=== PATIENT | female | born 2000 | race Caucasian/White ===

== ENCOUNTER 2023-12-21 09:36 | Emergency (ER) | payer OTHER, SELFPAY ==
[2023-12-21 09:42] VITALS: BP 132/96
[2023-12-21 10:25] VITALS: BMI 45.9
--- NOTE | 2023-12-21 10:39 | ED.GENMED ---
History of Present Illness
General
Chief Complaint: Vaginal Bleeding
Source: patient
Exam Limitations: none
Time Seen by Provider: 12/21/23 10:38
Nursing documentation reviewed up to this point in time: agreed with
History of Present Illness
History of Present Illness:
23 yr old female with past medical history of anxiety ADHD suicidal attempt in the past presents to the ER for vaginal bleeding. Patient reports she has been bleeding vaginally since October 06. Prior to that she had not had a regular period for
months. She has had some clots recently last night while at work passed out. 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 Previously she she Saw DR Faiza gutiérrez.
She does complain of cramping now. She has 1 history of 1 elective . She is not on control.
Past History
Past History
ED Past Medical History: Asthma, Seizures (Pseudoseizures diagnosed in [place]...new-onset June 2019, while residing in [place]), Psychiatric (Bipolar disorder, borderline personality disorder, intentional overdose) and Other (IBS, Overdose)
ED Past Surgical History: Tonsilectomy
Patient has exhibited threatening behavior?: No
Social History
Tobacco: Smoker
Alcohol: Occasional
Drug: None
Personal: Single
Living: alone (Lives with roommates)
Family History
Family History: Other (Uncontributory)
Review of Systems
Review of Systems
Allergies reviewed?: Yes
All Other Systems: ROS reviewed and negative except as documented in HPI and ROS
Constitutional: Reports no symptoms; Denies fever, fatigue or chills
Respiratory: Reports no symptoms
Cardiac: Reports no symptoms
ABD/GI: Reports abdominal pain (lower abd cramping )
: Reports other (Vaginal bleeding/abd cramping )
Musculoskeletal: Reports no symptoms
Skin: Reports no symptoms
Neurological: Reports no symptoms
Psychiatric: Reports no symptoms
Phy Exam
General Physical Exam
General Presentation: no apparent distress
General age: appears stated age
General Skin: warm and dry
General Habitus: obese
Course
Orders/Labs/Results
Orders:
Orders
12/21/23 10:50
Electrocardiogram (*1) Stat
Reason for Study: Other
Other Reason for Exam: chest pain
Cardiac Monitoring- Treatment ONCE
EKG- Treatment ONCE
12/21/23 11:13
Test Result ONCE
12/21/23 11:15
Type+Screen Urgent
Complete Blood Count/With Diff Urgent
Comprehensive Metabolic Panel Urgent
HCG, Serum Qualitative Screen Urgent
Urinalysis Reflex To Culture Urgent
Date Specimen was Collected: 12/21/23
Time Specimen was Collected: 11:12
Urine Microscopic Reflex Cult Urgent
Abnormal Lab Results
12/21/23
11:15
Creatinine 0.5 L mg/dL
(0.6-1.0)
Ur Occult Blood Reflex 1+ A
(Negative)
Urine RBC 3-6 A /HPF
(0-2)
Urine Bacteria (Reflex) Few A
(Negative)
12/21/23 11:15
12/21/23 11:15
Vital Signs
Initial and Last Documented VS:
Initial Vital Signs
Temp Pulse Resp BP Pulse Ox
98.4 F 97 18 132/96 98
12/21/23 09:42 12/21/23 09:42 12/21/23 09:42 12/21/23 09:42 12/21/23 09:42
Last Documented Vital Signs
Temp Pulse Resp BP Pulse Ox
98.4 F 78 21 120/77 99
12/21/23 09:42 12/21/23 12:00 12/21/23 11:15 12/21/23 12:00 12/21/23 12:00
MDM/Problems Addressed
Differential Diagnosis Includes:
Not limited to dysfunctional uterine bleeding, anemia
MDM/Problems Addressed:
Symptoms are consistent with dysfunctional uterine bleeding. Patient presents awake alert no acute distress stable hemoglobin of 14.4 nontachycardic.
Patient had complains of mild abdominal cramping in no acute distress here in the ER abdomen soft nontender. patient requested to eat something here in the ER.
she is eating here and looks well. hCG is negative. 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
*Pulse Oximetry
Patient hypoxic: no
*Critical Care Note
Total Time (30-74mins, 75-104mins- exclusive of procedures): Not Applicable
ED Attending Note
-
Portions of this chart may have been created with voice recognition software.� Occasional wrong word or��sound alike� substitutions may have occurred due to the inherent limitations of voice recognition software.
Discharge Plan
Departure
Patient Disposition: Home (Routine Discharge)
Date of Disposition: 12/21/23
Time of Disposition: 12:21
Patient with high blood pressure during this ER visit?: Yes
Condition: Fair
Covid-19: Not Applicable
Discharge Problem:
dysfunctional vaginal bleeding
Instructions: Bleeding Between Periods
Prescriptions:
No Action
meloxicam 15 mg tablet
15 mg PO DAILY
topiramate 50 mg tablet
75 mg PO BID
Rx Instructions:
Last filled 07/02/22 #90 x30 days supply
Referrals:
NONE,* [Family Provider] -
Keyla Arteaga MD [Active] -
Activity Restrictions/Additional Instructions:
As discussed your labs are normal You need to follow-up with gynecology. Please call the office today for an appointment as soon as possible return if any worsening of symptoms
Interventions
Interventions:
*Risk Screen - Suicide Last Done: 12/21/23 09:42
*General Assessment Last Done: 12/21/23 09:42
*Neglect/Abuse Screening Last Done: 12/21/23 09:42
ED- Fall Risk Assessment Last Done: 12/21/23 10:25
*ED COVID-19 Vaccine History Last Done: 12/21/23 10:25
ED-Female Genitourinary Assessment Last Done: 12/21/23 10:25
Discharge Date and Time
Print Language: TAIWANESE
[2023-12-21 11:17] VITALS: BP 115/86
[2023-12-21 11:28] LABS: % Basophils 0.5 % (0-2); % Eosinophils 1.1 % (0-6); % Immature Granulocytes 0.4 % (0-0.5); % Lymphocytes 31.3 % (20.5-51.1); % Monocytes 5.4 % (1.7-9.3); % Neutrophils 61.3 % (42.2-75.2); Absolute Basophils 0.1 10^3/uL (0-0.2); Absolute Eosinophils 0.1 10^3/uL (0-0.7); Absolute Lymphocytes 3.1 10^3/uL (1.2-3.4); Absolute Monocytes 0.5 10^3/uL (0.1-0.6); Absolute Neutrophils 6.1 10^3/uL (1.4-6.5); Hematocrit 41.4 % (37.0-47.0); Hemoglobin 14.4 g/dL (12.0-16.0); Mean Corp Hgb Conc. 34.8 g/dL (33.0-37.0); Mean Corpuscular Hgb 28.7 pg (27.0-31.0); Mean Corpuscular Volume 82.6 fL (81.0-99.0); Nucleated Red Blood Cells % 0 %; Platelet Count 276 10^3/uL (130-400); Red Blood Cell Count 5.01 10^6/uL (4.20-5.40); Red Cell Dist. Width 12.7 % (11.5-14.5); White Blood Cell Count 9.9 10^3/uL (4.8-10.8)
[2023-12-21 11:32] LABS: Urine Albumin Negative (Neg - Trace); Urine Bilirubin Negative (Negative); Urine Character Clear (Clear); Urine Color Yellow; Urine Glucose Negative (Negative); Urine Ketone Negative (Negative); Urine Leukocyte Negative (Negative); Urine Nitrite Negative (Negative); Urine Occult Blood 1+ (Negative); Urine Specific Gravity 1.015 (<1.030); Urine Urobilinogen Negative (Neg - 1+); Urine pH 6.5 (5.0-9.0)
[2023-12-21 11:38] LABS: HCG, Serum Qualitative Screen Negative
[2023-12-21 11:41] LABS: ALT (SGPT) 25 U/L (0-35); AST (SGOT) 19 U/L (14-36); Albumin 4.4 g/dl (3.5-5.0); Alkaline Phosphatase 95 U/L (38-126); Blood Urea Nitrogen 9 mg/dl (7-17); Calcium 9.2 mg/dl (8.4-10.2); Carbon Dioxide 24 mmol/L (22-30); Chloride 105 mmol/L (98-107); Estimated Creatinine Clearance > 125 ml/min; Glucose 96 mg/dl (70-99); Potassium 4.2 mmol/L (3.5-5.1); Sodium 137 mmol/L (135-145); Total Bilirubin 0.4 mg/dl (0.2-1.3); eGFR > 60.00
[2023-12-21 11:50] LABS: Urine Mucus Few
[2023-12-21 11:51] LABS: Urine Bacteria Few (Negative); Urine Squamous Cell 16-20 /LPF (Few); Urine White Cell 0-2 /HPF (0-5)
[2023-12-21 12:00] VITALS: BP 120/77
== END 2023-12-21 12:33 | disposition home or self-care (01) ==
LOC: EMR 09:36
PROVIDERS: Nurse Practitioner; EMERGENCY PHYSICIAN Emergency Medicine
DX: N93.8 Other specified abnormal uterine and vaginal bleeding (principal); F41.9 Anxiety disorder, unspecified; F90.9 Attention-deficit hyperactivity disorder, unspecified type; R45.851 Suicidal ideations; J45.909 Unspecified asthma, uncomplicated; F31.9 Bipolar disorder, unspecified; F60.3 Borderline personality disorder; K58.9 Irritable bowel syndrome, unspecified; F17.200 Nicotine dependence, unspecified, uncomplicated; Z91.51 Personal history of suicidal behavior
CPT/HCPCS: 99283; 80053; 81003; 81015; 84703; 85025; 86850; 86900; 86901; 93005

== ENCOUNTER 2024-07-22 07:07 | Emergency (ER) | payer OTHER, SELFPAY ==
[2024-07-22 07:11] VITALS: BP 131/84
--- NOTE | 2024-07-22 08:37 | ED.GENMED ---
History of Present Illness
General
Chief Complaint: Allergic Reaction
Source: patient
Exam Limitations: none
Time Seen by Provider: 07/22/24 08:37
Nursing documentation reviewed up to this point in time: agreed with
History of Present Illness
History of Present Illness:
24-year-old female past medical history of asthma presenting to the emergency department with an itchy rash that started overnight last night. Took Benadryl at home prior to arrival with some mild improvement. Had some trouble swallowing and
breathing prior to arrival symptoms have otherwise improved during her stay in the ER so far. Denies any chest pain shortness of breath she is unsure of any specific exposure.
Past History
Past History
ED Past Medical History: Asthma, Seizures (Pseudoseizures diagnosed in [place]...new-onset June 2019, while residing in [place]), Psychiatric (Bipolar disorder, borderline personality disorder, intentional overdose) and Other (IBS, Overdose)
ED Past Surgical History: Tonsilectomy
Patient has exhibited threatening behavior?: No
Social History
Tobacco: Smoker
Alcohol: Occasional
Drug: None
Personal: Single
Living: alone (Lives with roommates)
Family History
Family History: Other (Uncontributory)
Review of Systems
Review of Systems
Allergies reviewed?: Yes
All Other Systems: ROS reviewed and negative except as documented in HPI and ROS
Phy Exam
Physical Exam
Physical Exam:
GENERAL: Alert , in no apparent distress
EYE: pupils equal and reactive
NECK: Supple, no significant adenopathy.
ENT: o/p clr, mmm.
CARDIAC: Regular rate and rhythm .
LUNGS: Clear breath sounds bilaterally, no acute respiratory distress, no wheezes/rales/rhonchi
ABDOMEN: Soft, without focal tenderness, no r/g, no cvat
NEUROLOGICAL: Alert and oriented, no focal neuro deficits
SKIN: Scattered raised wheals to the upper chest, warm and dry, skin intact.
MUSCULOSKELETAL: No edema, well perfused.
PSYCH: Normal and appropriate interaction.
Course
Orders/Labs/Results
Orders:
Orders
07/22/24 08:34
Dexamethasone Pf [Decadron] 10 mg .ROUTE .STK-MED ONE
07/22/24 08:40
Dexamethasone [Decadron] 10 mg PO NOW STA
Vital Signs
Initial and Last Documented VS:
Initial Vital Signs
Temp Pulse Resp BP Pulse Ox
98.6 F 89 18 131/84 98
07/22/24 07:11 07/22/24 07:11 07/22/24 07:11 07/22/24 07:11 07/22/24 07:11
Last Documented Vital Signs
Temp Pulse Resp BP Pulse Ox
98.6 F 89 18 131/84 98
07/22/24 07:11 07/22/24 07:11 07/22/24 07:11 07/22/24 07:11 07/22/24 07:11
MDM/Problems Addressed
MDM/Problems Addressed:
24-year-old female presenting to the emergency department with hives scattered throughout the upper chest. Otherwise clear oropharynx normal posterior pharynx, clear lungs no signs of anaphylaxis at this point. Patient likely with allergic
reaction that is isolated to the skin at this point plan for symptomatic treatment otherwise stable for outpatient follow-up. Return precautions given.
*Critical Care Note
Total Time (30-74mins, 75-104mins- exclusive of procedures): Not Applicable
ED Attending Note
-
Portions of this chart may have been created with voice recognition software.� Occasional wrong word or��sound alike� substitutions may have occurred due to the inherent limitations of voice recognition software.
Discharge Plan
Departure
Patient Disposition: Home (Routine Discharge)
Date of Disposition: 07/22/24
Time of Disposition: 08:37
Patient with high blood pressure during this ER visit?: No
Condition: Good
Covid-19: Not Applicable
Discharge Problem:
Allergic reaction
Instructions: Hives (DC)
Prescriptions:
New
prednisone 20 mg tablet
40 mg PO DAILY 4 Days Qty: 8 0RF
Zyrtec 10 mg capsule
10 mg PO DAILY 5 Days Qty: 5 0RF
famotidine 40 mg tablet
40 mg PO HS 5 Days Qty: 5 0RF
epinephrine [EpiPen 2-Mauricio] 0.3 mg/0.3 mL auto-injector
0.3 mg IM Q5-15M PRN (Reason: anaphylaxis) Qty: 2 0RF
No Action
meloxicam 15 mg tablet
15 mg PO DAILY
topiramate 50 mg tablet
75 mg PO BID
Rx Instructions:
Last filled 07/02/22 #90 x30 days supply
Referrals:
UNKNOWN,NO INTERVIEW [Family Provider] -
Activity Restrictions/Additional Instructions:
You can to the emergency department today with concerns of a rash that appears to be consistent with allergic reaction. Please take the prescribed medications and follow-up very closely with the primary care the next few days for reassessment to
ensure this is improving. Return for any worsening, new or concerning symptoms.
Interventions
Interventions:
*Risk Screen - Suicide Last Done: 07/22/24 07:11
*Neglect/Abuse Screening Last Done: 07/22/24 08:40
ED- Fall Risk Assessment Last Done: 07/22/24 08:40
*ED COVID-19 Vaccine History Last Done: 07/22/24 08:40
*Nursing Disposition Last Done: 07/22/24 08:46
ED- Cardiac Assessment Last Done: 07/22/24 08:40
ED- Pulmonary Assessment Last Done: 07/22/24 08:40
ED-Skin Assessment Last Done: 07/22/24 08:40
Discharge Date and Time
Discharge Date/Time: 07/22/24 08:47
Print Language: UZBEK
[2024-07-22] MEDS: DECADRON 10 MG PO (08:42)
== END 2024-07-22 08:47 | disposition home or self-care (01) ==
LOC: EMR 07:07
PROVIDERS: EMERGENCY PHYSICIAN Emergency Medicine
DX: T78.40XA Allergy, unspecified, initial encounter (principal); X58.XXXA Exposure to other specified factors, initial encounter; L50.9 Urticaria, unspecified; J45.909 Unspecified asthma, uncomplicated; F17.200 Nicotine dependence, unspecified, uncomplicated
CPT/HCPCS: 99283

== ENCOUNTER 2024-09-27 10:04 | Emergency (ER) | payer OTHER, SELFPAY ==
[2024-09-27 10:13] VITALS: BP 129/83
--- NOTE | 2024-09-27 11:02 | ED.GENMED ---
History of Present Illness
General
Chief Complaint: Breathing Problem
Source: patient
Exam Limitations: none
Time Seen by Provider: 09/27/24 10:51
History of Present Illness
History of Present Illness:
24-year-old female with history of asthma presents via EMS from place of employment after having an asthma attack. She did not have her inhaler on her and she was having trouble breathing EMS was called. She received an albuterol inhaler on the
way here and is feeling much better. Currently has no complaints of shortness of breath chest tightness wheeze cough or fever. No other complaints at this time
Past History
Past History
ED Past Medical History: Asthma, Seizures (Pseudoseizures diagnosed in [place]...new-onset June 2019, while residing in [place]), Psychiatric (Bipolar disorder, borderline personality disorder, intentional overdose) and Other (IBS, Overdose)
ED Past Surgical History: Tonsilectomy
Patient has exhibited threatening behavior?: No
Social History
Tobacco: Smoker
Alcohol: Occasional
Drug: None
Personal: Single
Living: alone (Lives with roommates)
Family History
Family History: Other (Uncontributory)
Phy Exam
Physical Exam
Physical Exam:
General: Well-appearing female no acute respiratory distress
HEENT: Normocephalic atraumatic
Heart: Regular rate and rhythm
Lungs: Clear no wheeze no respiratory distress no increased accessory muscle use
Extremities: No cyanosis
Course
Vital Signs
Initial and Last Documented VS:
Initial Vital Signs
Temp Pulse Resp BP Pulse Ox
98 F 98 16 129/83 98
09/27/24 10:13 09/27/24 10:13 09/27/24 10:13 09/27/24 10:13 09/27/24 10:13
Last Documented Vital Signs
Temp Pulse Resp BP Pulse Ox
98 F 98 16 129/83 98
09/27/24 10:13 09/27/24 10:13 09/27/24 10:13 09/27/24 10:13 09/27/24 10:13
MDM/Problems Addressed
Differential Diagnosis Includes:
Patient may have had an asthma attack while at work but her lungs are clear currently after an albuterol inhaler. She is in no respiratory distress. She has an inhaler at home which she will use. No indication for imaging. Discussed steroids but
held off for now. Recommend continued use of inhaler if needed. Stable for discharge
*Critical Care Note
Total Time (30-74mins, 75-104mins- exclusive of procedures): Not Applicable
ED Attending Note
-
Portions of this chart may have been created with voice recognition software.� Occasional wrong word or��sound alike� substitutions may have occurred due to the inherent limitations of voice recognition software.
Discharge Plan
Departure
Patient Disposition: Home (Routine Discharge)
Date of Disposition: 09/27/24
Time of Disposition: 11:03
Patient with high blood pressure during this ER visit?: No
Discharge Problem:
Asthma exacerbation
Instructions: Asthma, Adult (DC)
Prescriptions:
No Action
meloxicam 15 mg tablet
15 mg PO DAILY
topiramate 50 mg tablet
75 mg PO BID
Rx Instructions:
Last filled 07/02/22 #90 x30 days supply
prednisone 20 mg tablet
40 mg PO DAILY 4 Days Qty: 8 0RF
Zyrtec 10 mg capsule
10 mg PO DAILY 5 Days Qty: 5 0RF
famotidine 40 mg tablet
40 mg PO HS 5 Days Qty: 5 0RF
epinephrine [EpiPen 2-Mauricio] 0.3 mg/0.3 mL auto-injector
0.3 mg IM Q5-15M PRN (Reason: anaphylaxis) Qty: 2 0RF
Activity Restrictions/Additional Instructions:
Use your inhaler if needed peer return if worse otherwise follow-up with your doctor
Interventions
Interventions:
*Risk Screen - Suicide Last Done: 09/27/24 10:13
*Neglect/Abuse Screening Last Done: 09/27/24 10:13
Discharge Date and Time
Print Language: ESTONIAN
== END 2024-09-27 11:30 | disposition home or self-care (01) ==
LOC: EMR 10:04
PROVIDERS: EMERGENCY PHYSICIAN Student in an Organized Health Care Education/Training Program; FAMILY PHYSICIAN Family Medicine
DX: J45.901 Unspecified asthma with (acute) exacerbation (principal); F17.200 Nicotine dependence, unspecified, uncomplicated
CPT/HCPCS: 99282

== ENCOUNTER 2024-12-07 06:43 | Emergency (ER) | payer OTHER, SELFPAY ==
[2024-12-07 06:57] VITALS: BP 143/86
--- NOTE | 2024-12-07 07:16 | ED.GENMED ---
History of Present Illness
General
Chief Complaint: Abdominal Pain
Source: patient
Exam Limitations: none
Time Seen by Provider: 12/07/24 07:05
Nursing documentation reviewed up to this point in time: agreed with
History of Present Illness
History of Present Illness:
24-year-old female presents emergency department due to right-sided abdominal pain. She has been vomiting dark-colored material since 4:30 AM today. She took her first dose of Zepbound yesterday. She is taking it for weight loss.
Past History
Past History
ED Past Medical History: Asthma, Seizures (Pseudoseizures diagnosed in [place]...new-onset June 2019, while residing in [place]), Psychiatric (Bipolar disorder, borderline personality disorder, intentional overdose) and Other (IBS, Overdose)
ED Past Surgical History: Tonsilectomy
Patient has exhibited threatening behavior?: No
Social History
Tobacco: Smoker
Alcohol: Occasional
Drug: None
Personal: Single
Living: alone (Lives with roommates)
Family History
Family History: Other (Uncontributory)
Review of Systems
Review of Systems
Allergies reviewed?: Yes
All Other Systems: Not applicable
Constitutional: Reports no symptoms
EENT: Reports no symptoms
Respiratory: Reports no symptoms
Cardiac: Reports no symptoms
ABD/GI: Reports abdominal pain, nausea and vomiting
: Reports no symptoms
Musculoskeletal: Reports no symptoms
Skin: Reports no symptoms
Neurological: Reports no symptoms
Endocrine: Reports no symptoms
Hematologic/Lymphatic: Reports no symptoms
Psychiatric: Reports no symptoms
Phy Exam
Physical Exam
Physical Exam:
Physical Exam
General: no apparent distress, not acutely ill
Neck: supple. no meningeal signs. normal posterior pharynx
Heart: s1/s2 regular rate and rhythm, no murmur. equal radial
pulses.
HEENT: Pupils equal round reactive to light, EOMI
Lungs: no acute respiratory distress. clear bilaterally
Abdomen: normal bowel sounds. Right upper quadrant tenderness, mild right lower quadrant, no CVA tenderness
Neuro: alert and oriented. no focal neurological deficits
Skin: no rash
Psychiatric: well kept. interactive and cooperative
Extremities: no edema. no calf tenderness. negative homans. good distal pulses
Course
Orders/Labs/Results
Orders:
Orders
12/07/24 07:07
Echo 2D MMode Color/Doppler Urgent
Reason for Study: weakness, recent ablation
12/07/24 07:17
US Abdomen Complete/Upper Urgent
Comment:
Reason For Exam: RUQ abd pain
12/07/24 07:18
CT Abd/Pel (IV only)-DH only Urgent
Comment:
Reason For Exam: RLQ abd pain
Test Result ONCE
12/07/24 07:19
IV Insert/Care/Rem.- Treatment PRN
12/07/24 07:23
Complete Blood Count/With Diff Urgent
Comprehensive Metabolic Panel Urgent
HCG, Serum Qualitative Screen Urgent
Lipase Urgent
12/07/24 07:25
Ondansetron Injectable [Zofran] 4 mg IV NOW STA
12/07/24 08:09
Add On- LAB Stat
Tests Added?: HCG QUAL
12/07/24 08:23
Morphine Sulfate 4 mg IV NOW STA
12/07/24 08:25
Urinalysis Reflex To Culture Urgent
Date Specimen was Collected: 12/07/24
Time Specimen was Collected: 08:21
Urine Microscopic Reflex Cult Urgent
Urine Culture Urgent
TAMIKO Source: U
Specimen Description:
Date Specimen was Collected: 12/07/24
Time Specimen was Collected: 08:21
Abnormal Lab Results
12/07/24 12/07/24
07:23 08:25
Chloride 109 H mmol/L
(98-107)
Glucose 109 H mg/dl
(70-99)
Leukocyte Esterase Rfl 1+ A
(Negative)
Urine Bacteria (Reflex) Moderate A
(Negative)
Urine Albumin (Reflex) 2+ A
(Neg - Trace)
12/07/24 07:23
12/07/24 07:23
Vital Signs
Initial and Last Documented VS:
Initial Vital Signs
Temp Pulse Resp BP Pulse Ox
98.3 F 102 16 143/86 100
12/07/24 06:57 12/07/24 06:57 12/07/24 06:57 12/07/24 06:57 12/07/24 06:57
Last Documented Vital Signs
Temp Pulse Resp BP Pulse Ox
98.3 F 102 16 143/86 99
12/07/24 06:57 12/07/24 06:57 12/07/24 06:57 12/07/24 06:57 12/07/24 09:00
MDM/Problems Addressed
Differential Diagnosis Includes:
Medication reaction gastroenteritis
MDM/Problems Addressed:
24-year-old female with nausea and vomiting and abdominal pain likely reaction to Zepbound which she took yesterday.
Chronic conditions affecting care: Asthma
*Radiology
Radiology exam reviewed: radiology read reviewed (Ultrasound shows fatty liver otherwise no acute findings CT abdomen pelvis shows thickened small bowel otherwise no acute findings)
*Pulse Oximetry
SaO2: 100
Oxygen Mode of Delivery: Room air
Patient hypoxic: no
*Accounts Payable Or Receivable Clerk Interpretation
Rate: Accounts Payable Or Receivable Clerk- N/A
*Critical Care Note
Total Time (30-74mins, 75-104mins- exclusive of procedures): Not Applicable
Patient Management
Social determinants of health affecting care: Living situation and Strong social support
Escalation/DeEscalation of care consider admission/obs:
Admit not indicated
ED Attending Note
-
Portions of this chart may have been created with voice recognition software.� Occasional wrong word or��sound alike� substitutions may have occurred due to the inherent limitations of voice recognition software.
Discharge Plan
Departure
Patient Disposition: Home (Routine Discharge)
Date of Disposition: 12/07/24
Time of Disposition: 10:12
Patient with high blood pressure during this ER visit?: Yes
Condition: Good
Discharge Problem:
Nausea & vomiting, Abdominal pain, Adverse drug reaction
Instructions: Nausea and Vomiting, Adult (DC), Abdominal Pain, BLOOD PRESSURE
Prescriptions:
No Action
meloxicam 15 mg tablet
15 mg PO DAILY
topiramate 50 mg tablet
75 mg PO BID
Rx Instructions:
Last filled 07/02/22 #90 x30 days supply
prednisone 20 mg tablet
40 mg PO DAILY 4 Days Qty: 8 0RF
Zyrtec 10 mg capsule
10 mg PO DAILY 5 Days Qty: 5 0RF
famotidine 40 mg tablet
40 mg PO HS 5 Days Qty: 5 0RF
epinephrine [EpiPen 2-Mauricio] 0.3 mg/0.3 mL auto-injector
0.3 mg IM Q5-15M PRN (Reason: anaphylaxis) Qty: 2 0RF
Referrals:
Iris Anderson, DO [Family Provider] - Call in 1-3 days for appt
Interventions
Interventions:
*Risk Screen - Suicide Last Done: 12/07/24 06:57
*General Assessment Last Done: 12/07/24 07:22
*Neglect/Abuse Screening Last Done: 12/07/24 06:57
*ED- Fall Risk Assessment Last Done: 12/07/24 07:22
*ED COVID-19 Vaccine History Last Done: 12/07/24 07:22
JQ-Obhnrj-Vjvtblhpdk Assessment Last Done: 12/07/24 07:59
Discharge Date and Time
Print Language: ALBANIAN
[2024-12-07 07:21] VITALS: BMI 47.7
[2024-12-07] MEDS: ZOFRAN 4 MG IV (07:34)
[2024-12-07 07:35] LABS: % Basophils 0.6 % (0-2); % Eosinophils 1.9 % (0-6); % Immature Granulocytes 0.3 % (0-0.5); % Lymphocytes 29.3 % (20.5-51.1); % Monocytes 6.8 % (1.7-9.3); % Neutrophils 61.1 % (42.2-75.2); Absolute Basophils 0.1 10^3/uL (0-0.2); Absolute Eosinophils 0.2 10^3/uL (0-0.7); Absolute Lymphocytes 2.7 10^3/uL (1.2-3.4); Absolute Monocytes 0.6 10^3/uL (0.1-0.6); Absolute Neutrophils 5.5 10^3/uL (1.4-6.5); Hematocrit 40.5 % (37.0-47.0); Hemoglobin 13.9 g/dL (12.0-16.0); Mean Corp Hgb Conc. 34.3 g/dL (33.0-37.0); Mean Corpuscular Hgb 28.1 pg (27.0-31.0); Mean Corpuscular Volume 81.8 fL (81.0-99.0); Mean Platelet Volume 9.6 fL (7.4-10.4); Nucleated Red Blood Cells % 0 %; Platelet Count 308 10^3/uL (130-400); Red Blood Cell Count 4.95 10^6/uL (4.20-5.40); Red Cell Dist. Width 14.5 % (11.5-14.5)
[2024-12-07 07:54] LABS: ALT (SGPT) 20 U/L (0-35); AST (SGOT) 17 U/L (14-36); Albumin 4.4 g/dl (3.5-5.0); Alkaline Phosphatase 67 U/L (38-126); Blood Urea Nitrogen 11 mg/dl (7-17); Calcium 9.5 mg/dl (8.4-10.2); Carbon Dioxide 22 mmol/L (22-30); Chloride 109 mmol/L (98-107); Estimated Creatinine Clearance > 125 ml/min; Glucose 109 mg/dl (70-99); Lipase 89 U/L (23-300); Potassium 4.1 mmol/L (3.5-5.1); Sodium 141 mmol/L (135-145); Total Bilirubin 0.4 mg/dl (0.2-1.3); Total Protein 7.3 g/dl (6.3-8.2); eGFR > 60.00
[2024-12-07] MEDS: MORPHINE SULFATE 4 MG IV (08:32)
[2024-12-07 08:36] LABS: HCG, Serum Qualitative Screen Negative
[2024-12-07 08:40] LABS: Urine Albumin 2+ (Neg - Trace); Urine Bilirubin Negative (Negative); Urine Character Slightly Cloudy (Clear); Urine Color Yellow; Urine Glucose Negative (Negative); Urine Ketone Negative (Negative); Urine Leukocyte 1+ (Negative); Urine Nitrite Negative (Negative); Urine Occult Blood Negative (Negative); Urine Urobilinogen Negative (Neg - 1+)
[2024-12-07 08:49] LABS: Urine Squamous Cell >30 /LPF (Few)
[2024-12-07 08:50] LABS: Urine Bacteria Moderate (Negative); Urine Mucus Few; Urine Red Blood Cell 0-2 /HPF (0-2); Urine White Cell 0-2 /HPF (0-5)
== END 2024-12-07 11:00 | disposition home or self-care (01) ==
LOC: EMR 06:43
PROVIDERS: EMERGENCY PHYSICIAN Emergency Medicine; FAMILY PHYSICIAN Family Medicine
DX: R11.2 Nausea with vomiting, unspecified (principal); R10.9 Unspecified abdominal pain; T50.995A Adverse effect of other drugs, medicaments and biological substances, initial encounter; J45.909 Unspecified asthma, uncomplicated; F17.200 Nicotine dependence, unspecified, uncomplicated; R03.0 Elevated blood-pressure reading, without diagnosis of hypertension
CPT/HCPCS: 99285; 96374; 96375; 74177; 76700; 80053; 81003; 81015; 83690; 84703; 85025; 87086; Q9967

== ENCOUNTER 2025-05-05 13:19 | Emergency (ER) | payer OTHER, SELFPAY ==
[2025-05-05 13:25] VITALS: BP 143/80
[2025-05-05 15:52] LABS: Hematocrit 39.4 % (37.0-47.0); Hemoglobin 13.1 g/dL (12.0-16.0); Mean Corp Hgb Conc. 33.2 g/dL (33.0-37.0); Mean Corpuscular Volume 84.9 fL (81.0-99.0); Nucleated Red Blood Cells % 0 %; Platelet Count 320 10^3/uL (130-400); Red Cell Dist. Width 13.9 % (11.5-14.5)
[2025-05-05 16:10] LABS: ALT (SGPT) 19 U/L (0-35); AST (SGOT) 17 U/L (14-36); Albumin 4.3 g/dl (3.5-5.0); Alkaline Phosphatase 66 U/L (38-126); Blood Urea Nitrogen 8 mg/dl (7-17); Calcium 8.9 mg/dl (8.4-10.2); Carbon Dioxide 25 mmol/L (22-30); Chloride 106 mmol/L (98-107); Glucose 79 mg/dl (70-99); Potassium 4.2 mmol/L (3.5-5.1); Sodium 137 mmol/L (135-145); Total Protein 6.9 g/dl (6.3-8.2); eGFR > 60.00
--- NOTE | 2025-05-05 17:52 | ED.GENMED ---
History of Present Illness
General
Chief Complaint: Problems
Source: patient
Exam Limitations: none
Time Seen by Provider: 05/05/25 16:00
Nursing documentation reviewed up to this point in time: agreed with
History of Present Illness
History of Present Illness:
Patient to emergency department with complaint of left lower quadrant pain. States she is approximately 4 to 5 weeks . She woke this morning with this pain. She states pain was sharp/stabbing pain. This pain has since resolved. She
denies any vaginal bleeding. She denies fever chills/recent illness. (miscarriage x 1, AB x 2) LMP 03/31. To ED accompanied by significant other for evaluation. She has an appointment for May 20 scheduled with [facility] through [facility].
She has not seen this provider yet.
Past History
Past History
ED Past Medical History: Asthma, Seizures (Pseudoseizures diagnosed in [place]...new-onset June 2019, while residing in [place]), Psychiatric (Bipolar disorder, borderline personality disorder, intentional overdose) and Other (IBS, Overdose)
ED Past Surgical History: Tonsilectomy
Patient has exhibited threatening behavior?: No
Social History
Tobacco: Smoker
Alcohol: Occasional
Drug: None
Personal: Single
Living: alone (Lives with roommates)
Family History
Family History: Other (Uncontributory)
Review of Systems
Review of Systems
Allergies reviewed?: Yes
All Other Systems: ROS reviewed and negative except as documented in HPI and ROS
Constitutional: Reports no symptoms
EENT: Reports no symptoms
Respiratory: Reports no symptoms
Cardiac: Reports no symptoms
ABD/GI: Reports abdominal pain (Left lower quadrant pain prior to arrival)
: Reports no symptoms
Musculoskeletal: Reports no symptoms
Skin: Reports no symptoms
Neurological: Reports no symptoms
Psychiatric: Reports no symptoms
Phy Exam
General Physical Exam
General Presentation: well appearing and no apparent distress
General age: appears stated age
General Skin: warm and dry
General Habitus: normal
General Mental: alert
Pulmonary Exam
Pulmonary Exam: no respiratory distress
Gastrointestinal Exam
Gastrointestinal Exam: normal bowel sounds, soft, no organomegaly, no pulsatile mass and non distended
Palpation: left upper quadrant: No tenderness, left lower quadrant: Mild tenderness, right upper quadrant: No tenderness and right lower quadrant: No tenderness
Musculoskeletal Exam
Musculoskeletal Exam: full ROM and neuro vasc intact
Skin Exam
Skin Exam: normal color, warm/dry and no rash
Psychiatric Exam
Psychiatric Exam: normal mood/affect
Course
Orders/Labs/Results
Orders:
Orders
05/05/25 13:28
w/ Transvaginal US [US W Transvaginal] Urgent
Comment:
Reason For Exam: r/o miscarriage
05/05/25 15:42
Type+Screen Urgent
Beta HCG Quantitative Urgent
Is this a screen?: No
Comment: 5 wk
CMP [Comprehensive Metabolic Panel] Urgent
Complete Blood Count/With Diff Urgent
Abnormal Lab Results
05/05/25
15:42
Abs Immat Gran (auto) 0.1 H 10^3/uL
(0-0.05)
Immature Gran % 0.7 H %
(0-0.5)
Creatinine 0.5 L mg/dL
(0.6-1.0)
05/05/25 15:42
05/05/25 15:42
Vital Signs
Initial and Last Documented VS:
Initial Vital Signs
Temp Pulse Resp BP Pulse Ox
98.1 F 100 15 143/80 98
05/05/25 13:25 05/05/25 13:25 05/05/25 13:25 05/05/25 13:25 05/05/25 13:25
Last Documented Vital Signs
Temp Pulse Resp BP Pulse Ox
98.1 F 100 15 143/80 98
05/05/25 13:25 05/05/25 13:25 05/05/25 13:25 05/05/25 13:25 05/05/25 13:25
Information
Weeks gestation: Weeks: (5)
Location: Location: (Anechoic structure within the uterus without pole or yolk sac seen)
*Radiology
Radiology exam reviewed: radiology read reviewed
*Pulse Oximetry
SaO2: 98
Oxygen Mode of Delivery: Room air
Patient hypoxic: no
*Critical Care Note
Total Time (30-74mins, 75-104mins- exclusive of procedures): Not Applicable
Update Note
Update Note:
Patient to the emergency department for evaluation of left lower quadrant abdominal pain. She reports she is approximately 4 to 5 weeks . Developed sudden onset of sharp stabbing pain to left lower quadrant this a.m. Pain is since
subsided although she does have some mild discomfort with deep palpation. Labs reviewed. hCG 1771.40. Ultrasound completed: Anechoic structure within the uterus which may represent gestational sac at approximately 4 to 5 weeks size without
pole or yolk sac seen. Left ovary contains 3 cysts which could represent corpus luteal cysts largest measuring 2.8 cm. Although not identified ectopic with intrauterine pseudosac cannot be excluded. Dr. Ruiz was consulted via [facility]
text. Okay to discharge home, recommends repeat hCG on Tuesday with [facility]. I spoke with Dr. Graham, defense travel administrator with [facility]. Report of patient's status given. She agrees with Dr. Ruiz's recommendation. She will have
the office contact patient in the a.m. to schedule follow-up appointment in office for evaluation, and repeat hCG. Patient is aware of the above. She was given instructions on signs and symptoms to return to the emergency department and she is
agreeable to this plan.
ED Attending Note
-
Portions of this chart may have been created with voice recognition software.� Occasional wrong word or��sound alike� substitutions may have occurred due to the inherent limitations of voice recognition software.
Discharge Plan
Departure
Patient Disposition: Home (Routine Discharge)
Date of Disposition: 05/05/25
Time of Disposition: 17:31
Patient with high blood pressure during this ER visit?: No
Condition: Good
Covid-19: Not Applicable
Discharge Problem:
Abdominal pain, left lower quadrant,
Instructions: symptoms, Abdominal Pain
Prescriptions:
No Action
meloxicam 15 mg tablet
15 mg PO DAILY
topiramate 50 mg tablet
75 mg PO BID
Rx Instructions:
Last filled 07/02/22 #90 x30 days supply
prednisone 20 mg tablet
40 mg PO DAILY 4 Days Qty: 8 0RF
Zyrtec 10 mg capsule
10 mg PO DAILY 5 Days Qty: 5 0RF
famotidine 40 mg tablet
40 mg PO HS 5 Days Qty: 5 0RF
epinephrine [EpiPen 2-Mauricio] 0.3 mg/0.3 mL auto-injector
0.3 mg IM Q5-15M PRN (Reason: anaphylaxis) Qty: 2 0RF
Referrals:
Iris Anderson, DO [Family Provider, Family Practice]
Activity Restrictions/Additional Instructions:
As we discussed, you will need to have another blood test on Tuesday to evaluate your HCG levels. Please contact your defense travel administrator/gynecology office in the AM to schedule this appointment. Return to the emergency department immediately for any
changes in/worsening of your symptoms.
Interventions
Interventions:
*Risk Screen - Suicide Last Done: 05/05/25 13:25
*General Assessment Last Done: 05/05/25 13:25
*Neglect/Abuse Screening Last Done: 05/05/25 13:25
*ED- Fall Risk Assessment Last Done: 05/05/25 17:33
*ED COVID-19 Vaccine History Last Done: 05/05/25 13:25
*ED Influenza Vaccine History Last Done: 05/05/25 13:25
*Nursing Disposition Last Done: 05/05/25 17:36
ED-Female Genitourinary Assessment Last Done: 05/05/25 17:34
Discharge Date and Time
Discharge Date/Time: 05/05/25 17:39
Print Language: POLISH
== END 2025-05-05 17:39 | disposition home or self-care (01) ==
LOC: EMR 13:19
PROVIDERS: Emergency Medicine; EMERGENCY PHYSICIAN Emergency Medicine; FAMILY PHYSICIAN Family Medicine
DX: O26.891 Other specified pregnancy related conditions, first trimester (principal); R10.32 Left lower quadrant pain; O99.511 Diseases of the respiratory system complicating pregnancy, first trimester; J45.909 Unspecified asthma, uncomplicated; O99.331 Smoking (tobacco) complicating pregnancy, first trimester; F17.200 Nicotine dependence, unspecified, uncomplicated; Z3A.01 Less than 8 weeks gestation of pregnancy
CPT/HCPCS: 99284; 76801; 76817; 80053; 84702; 85025; 86850; 86900; 86901